=== PATIENT | female | born 1975 | race Caucasian/White ===

== ENCOUNTER 2016-10-28 10:40 | Observation (INO) ==
--- NOTE | 2016-10-28 11:09 | Emergency Department Note ---
Disposition Clinical Impression: Suicidal ideation Depression Qualifiers: Depression Type: unspecified Qualified Code(s): F32.9 - Major depressive disorder, single episode, unspecified Disposition: Admitted As Inpatient Condition: Fair Referrals: NONE,PCP [Primary Care Provider] - Forms: ED Satisfaction Letter Time of Disposition: 15:17 Psych HPI - General Chief Complaint: ED Psychiatric Symptoms Stated Complaint: SI Time Seen by Provider: 10/28/16 11:02 Source: patient Mode of arrival: ambulatory Limitations: no limitations Nursing Notes Reviewed: Yes Vital Signs Reviewed: Yes - History of Present Illness HPI Narrative: 41-year-old who comes in complaining of depression with suicidal ideation. Patient states she has a history depression has not taken her medication since beginning of the year. Pt complaint: suicidal ideation, feels depressed If medical clearance, reason: psychiatric condition Onset (ago): day(s) Duration: constant History of similar episodes: Yes Improves with: none Worsens with: none Alleged intoxication: No Associated Psychiatric Symptoms: depression Associated symptoms: Reports: denies other symptoms Treatments prior to arrival: none - Related Data Previous Rx's Medication Instructions Recorded Gabapentin [Neurontin] 100 mg PO TID 30 Days 12/27/14 FLUoxetine HCl [Prozac] 20 mg PO DAILY 30 Days 07/10/15 Allergies Allergy/AdvReac Type Severity Reaction Status Date / Time Penicillins Allergy Difficulty Verified 07/09/15 13:15 Breathing promethazine [From Phenergan] Allergy Nausea Verified 07/09/15 13:15 Constitutional: Denies: fever, chills, weakness, weight change Eyes: Denies: eye pain, eye discharge, vision change ENT ED: Denies: ear pain, throat pain, dental pain, hearing loss, epistaxis, congestion, dysphagia Cardiovascular: Denies: chest pain, palpitations, dyspnea on exertion, edema, syncope Respiratory: Denies: cough, dyspnea, wheezes, hemoptysis, stridor Gastrointestinal: Denies: abdominal pain, nausea, vomiting, diarrhea, constipation, hematemesis, melena, hematochezia Genitourinary: Denies: dysuria, frequency, hematuria, discharge Musculoskeletal: Denies: back pain, neck pain, arthralgia, myalgia Integumentary: Denies: rash, abrasion, lesions Neurological: Denies: headache, weakness, numbness, paresthesias, confusion, abnormal gait, vertigo Psychiatric: Reports: depression, suicidal thoughts. Denies: anxiety, homicidal thoughts, auditory hallucinations, visual hallucinations Endocrine: Denies: fatigue Hematological/Lymphatic: Denies: easy bleeding, easy bruising Allergic/Immunologic: Denies: facial swelling, urticaria Past Medical History - Past Medical History Medical history: Reports: no medical history Surgical history: Reports: other Psychiatric history: Reports: previous psychiatric hospitalization - Social History Smoking Status: Current every day smoker Smokeless Tobacco Status: No Alcohol use: Reports: occasionally, recent Drug use: Reports: methamphetamine Physical Exam - General Limitations: no limitations General appearance: alert, in no apparent distress - Head Head exam: atraumatic, normocephalic, normal inspection - Eye Eye exam: Present: normal appearance, PERRL, EOMI - ENT ENT exam: normal exam, normal oropharynx, mucous membranes moist - Neck Neck exam: Present: normal inspection, full ROM, trachea midline - Chest Chest inspection: Present: normal inspection, symmetric chest wall rise - Respiratory Respiratory exam: Present: normal lung sounds bilaterally - Cardiovascular Cardiovascular exam: Present: regular rate, normal rhythm, normal heart sounds - Abdominal Exam Abdominal exam: Present: soft, Non-Tender. Absent: tenderness, distention, guarding, rebound, rigidity - Extremities Exam Extremities exam: Present: normal inspection, full ROM. Absent: tenderness, pedal edema - Expanded Lower Extremity Exam Neurovascular/Tendon exam: Absent: motor deficit, sensory deficit, tendon deficit Gait: observed and normal - Back Exam Back exam: Present: normal inspection, full ROM. Absent: tenderness - Neurological Exam Neurological exam: Present: alert, oriented X3 - Psychiatric Psychiatric exam: Present: depressed, suicidal ideation - Skin Skin exam: Present: warm, dry, intact, normal color Course - Reevaluation(s) Reevaluation #1: 41-year-old with history depression and complaining of suicidal ideation. Patient was found to be a risk to herself. Patient will be admitted. Time: 15:16 - Consultations Consultation #1: Discussed with psychiatry who will admit the patient. Time: 15:16 Vital Signs Temperature 98.3 F 10/28/16 10:51 Pulse Rate 106 10/28/16 10:51 Respiratory Rate 16 10/28/16 10:51 Blood Pressure 122/85 10/28/16 10:51 O2 Sat by Pulse Oximetry 97 10/28/16 10:51 Temperature 98.3 F 10/28/16 10:51 Pulse Rate 106 10/28/16 10:51 Respiratory Rate 16 10/28/16 10:51 Blood Pressure 122/85 10/28/16 10:51 O2 Sat by Pulse Oximetry 97 10/28/16 10:51 Oxygen Delivery Oxygen Delivery Room Air Psych - Lab Data Lab results reviewed: Yes I reviewed the patient's lab results. Result diagrams: 10/28/16 11:14 10/28/16 11:14 Lab Results 10/28/16 10/28/16 10/28/16 Range/Units 11:14 11:14 11:14 WBC 4.3 (4.3-11.1) K/mcL RBC 4.62 (3.82-4.97) M/mcL Hgb 9.6 L (11.5-15.4) g/dL Hct 31.7 L (35.3-44.9) % MCV 68.6 L (83.0-100.0) fL MCH 20.8 L (28.0-33.3) pg MCHC 30.3 L (31.6-35.5) g/dL RDW 21.8 H (11.5-14.5) % Plt Count 522 H (140-400) K/mcL MPV 9.0 L (9.4-12.4) fL Immature Gran % 0.0 (0-4) % Seg Neutrophils % 41.4 % Lymphocytes % 43.6 % Monocytes % 11.0 % Eosinophils % 3.3 % Basophils % 0.7 % Neutrophils # 1.8 (1.6-8.9) K/mcL Lymphocytes # 1.9 (0.6-4.6) K/mcL Monocytes # 0.5 (0.0-1.3) K/mcL Eosinophils # 0.1 (0.0-0.6) K/mcL Basophils # 0.0 (0.0-0.2) K/mcL Platelet Estimate Increased H (Normal) Immature Plt Fraction 2.4 (1.1-6.1) % Polychromasia 1+ A (Not Present) Hypochromasia Present A (Not Present) Anisocytosis 1+ A (Not Present) Microcytosis Present A (Not Present) Sodium 140 (136-145) mEq/L Potassium 3.7 (3.5-4.5) mEq/L Chloride 109 (98-109) mEq/L Carbon Dioxide 23 (19-29) mEq/L BUN 9 (7-20) mg/dL Creatinine 0.65 (0.57-1.11) mg/dL Est GFR ( Amer) > 60 (> 60) Est GFR (Non-Af Amer) > 60 (> 60) BUN/Creatinine Ratio 14 (6-26) Glucose 105 H (70-99) mg/dL Calculated Osmolality 289 (280-300) Calcium 9.2 (8.6-10.8) mg/dL Serum , Qual Negative (Negative) Urine Color (Yellow) Urine Clarity (Clear) Urine pH (5.0-8.0) pH Units Ur Specific [place] (1.010-1.025) Urine Protein (Neg-Trace) mg/dL Urine Glucose (UA) (Normal) mg/dL Urine Ketones (Negative) mg/dL Urine Blood (Negative) Urine Nitrite (Negative) Urine Bilirubin (Negative) Urine Urobilinogen (Normal) mg/dL Ur Leukocyte Esterase (Negative) Urine Microscopic RBC (0-3) per hpf Urine Microscopic WBC (0-3) per hpf Ur Squamous Epith Cells (None-Few) per lpf Urine Bacteria (None-Few) per hpf Hyaline Casts (None-Few) per lpf Salicylates < 5.0 L (15-30) mg/dL Urine Opiates Screen (Bbnbmn=677) ng/mL Acetaminophen < 1.0 L (10-30) mcg/mL Ur Barbiturates Screen (Hmctat=264) ng/mL Ur Phencyclidine Scrn (Cutoff=25) ng/mL Ur Amphetamines Screen (Fuawvh=6382) ng/mL U Benzodiazepines Scrn (Yhdcqv=524) ng/mL Urine Cocaine Screen (Cutoff= 300) ng/mL U Marijuana (THC) Screen (Cutoff = 50) ng/mL Ethyl Alcohol < 10 (0-10) mg/dL 10/28/16 10/28/16 Range/Units 12:06 12:06 WBC (4.3-11.1) K/mcL RBC (3.82-4.97) M/mcL Hgb (11.5-15.4) g/dL Hct (35.3-44.9) % MCV (83.0-100.0) fL MCH (28.0-33.3) pg MCHC (31.6-35.5) g/dL RDW (11.5-14.5) % Plt Count (140-400) K/mcL MPV (9.4-12.4) fL Immature Gran % (0-4) % Seg Neutrophils % % Lymphocytes % % Monocytes % % Eosinophils % % Basophils % % Neutrophils # (1.6-8.9) K/mcL Lymphocytes # (0.6-4.6) K/mcL Monocytes # (0.0-1.3) K/mcL Eosinophils # (0.0-0.6) K/mcL Basophils # (0.0-0.2) K/mcL Platelet Estimate (Normal) Immature Plt Fraction (1.1-6.1) % Polychromasia (Not Present) Hypochromasia (Not Present) Anisocytosis (Not Present) Microcytosis (Not Present) Sodium (136-145) mEq/L Potassium (3.5-4.5) mEq/L Chloride (98-109) mEq/L Carbon Dioxide (19-29) mEq/L BUN (7-20) mg/dL Creatinine (0.57-1.11) mg/dL Est GFR ( Amer) (> 60) Est GFR (Non-Af Amer) (> 60) BUN/Creatinine Ratio (6-26) Glucose (70-99) mg/dL Calculated Osmolality (280-300) Calcium (8.6-10.8) mg/dL Serum , Qual (Negative) Urine Color Yellow (Yellow) Urine Clarity Clear (Clear) Urine pH 6.0 (5.0-8.0) pH Units Ur Specific [place] 1.029 H (1.010-1.025) Urine Protein 30 H (Neg-Trace) mg/dL Urine Glucose (UA) Normal (Normal) mg/dL Urine Ketones Negative (Negative) mg/dL Urine Blood Negative (Negative) Urine Nitrite Negative (Negative) Urine Bilirubin Negative (Negative) Urine Urobilinogen Normal (Normal) mg/dL Ur Leukocyte Esterase Negative (Negative) Urine Microscopic RBC 0-3 (0-3) per hpf Urine Microscopic WBC 3-5 H (0-3) per hpf Ur Squamous Epith Cells Many H (None-Few) per lpf Urine Bacteria None Seen (None-Few) per hpf Hyaline Casts None Seen (None-Few) per lpf Salicylates (15-30) mg/dL Urine Opiates Screen Negative (Xonska=682) ng/mL Acetaminophen (10-30) mcg/mL Ur Barbiturates Screen Negative (Zygnsm=662) ng/mL Ur Phencyclidine Scrn Negative (Cutoff=25) ng/mL Ur Amphetamines Screen Positive H (Jfdsbt=3083) ng/mL U Benzodiazepines Scrn Negative (Kvbjua=053) ng/mL Urine Cocaine Screen Negative (Cutoff= 300) ng/mL U Marijuana (THC) Screen Negative (Cutoff = 50) ng/mL Ethyl Alcohol (0-10) mg/dL Psychiatric Medical Clearance - Medical Clearance Checklist Does the patient have a NEW psychiatric condition?: No Any abnormalities indicating possible medical illness?: No Any history of medical issues?: No Medical History: No Social History Section defined Any abnormal vital signs prior to transfer?: No Current Vitals: Last Vital Signs Temp 98.3 F 10/28/16 10:51 Pulse 106 10/28/16 10:51 Resp 16 10/28/16 10:51 BP 122/85 10/28/16 10:51 Pulse Ox 97 10/28/16 10:51 Is the patient intoxicated or cognitively impaired?: No Psychiatric Lab Panel: Drug Levels and Toxicity 10/28/16 10/28/16 11:14 12:06 Urine Opiates Screen Negative Acetaminophen < 1.0 L Ur Barbiturates Screen Negative Ur Phencyclidine Scrn Negative Ur Amphetamines Screen Positive H U Benzodiazepines Scrn Negative Urine Cocaine Screen Negative U Marijuana (THC) Screen Negative Ethyl Alcohol < 10 Any abnormalities on the physical exam?: No Any abnormal labs?: Yes (Anemia) Abnormal Labs: Abnormal lab results Hgb 9.6 g/dL (11.5-15.4) L 10/28/16 11:14 Hct 31.7 % (35.3-44.9) L 10/28/16 11:14 MCV 68.6 fL (83.0-100.0) L 10/28/16 11:14 MCH 20.8 pg (28.0-33.3) L 10/28/16 11:14 MCHC 30.3 g/dL (31.6-35.5) L 10/28/16 11:14 RDW 21.8 % (11.5-14.5) H 10/28/16 11:14 Plt Count 522 K/mcL (140-400) H 10/28/16 11:14 MPV 9.0 fL (9.4-12.4) L 10/28/16 11:14 Platelet Estimate Increased (Normal) H 10/28/16 11:14 Polychromasia 1+ (Not Present) A 10/28/16 11:14 Hypochromasia Present (Not Present) A 10/28/16 11:14 Anisocytosis 1+ (Not Present) A 10/28/16 11:14 Microcytosis Present (Not Present) A 10/28/16 11:14 Glucose 105 mg/dL (70-99) H 10/28/16 11:14 Ur Specific [place] 1.029 (1.010-1.025) H 10/28/16 12:06 Urine Protein 30 mg/dL (Neg-Trace) H 10/28/16 12:06 Urine Microscopic WBC 3-5 per hpf (0-3) H 10/28/16 12:06 Ur Squamous Epith Cells Many per lpf (None-Few) H 10/28/16 12:06 Salicylates < 5.0 mg/dL (15-30) L 10/28/16 11:14 Acetaminophen < 1.0 mcg/mL (10-30) L 10/28/16 11:14 Ur Amphetamines Screen Positive ng/mL (Kgsvvs=6534) H 10/28/16 12:06 Does the patient require durable medical equiptment?: No Is the patient ambulatory?: Yes Is the patient a fall risk?: No Has the patient been medically cleared?: Yes Statement of Medical Clearance: I have evaluated the patient, reviewed diagnostic information, and certify that the patient's medical condition is sufficiently stable that transfer to the psychiatric unit does not pose a significant risk of deterioration.
[2016-10-28 11:40] LABS: Basophils % 0.7 %; Eosinophils # 0.1 K/mcL (0.0-0.6); Eosinophils % 3.3 %; Hematocrit 31.7 % (35.3-44.9); Hemoglobin 9.6 g/dL (11.5-15.4); Immature Platelets 2.4 % (1.1-6.1); Lymphocytes # 1.9 K/mcL (0.6-4.6); Lymphocytes % 43.6 %; Mean Corpuscular HGB Conc 30.3 g/dL (31.6-35.5); Mean Corpuscular Hemoglobin 20.8 pg (28.0-33.3); Mean Corpuscular Volume 68.6 fL (83.0-100.0); Monocytes # 0.5 K/mcL (0.0-1.3); Neutrophils # 1.8 K/mcL (1.6-8.9); Platelet Count 522 K/mcL (140-400); Red Blood Count 4.62 M/mcL (3.82-4.97); Red Cell Distribution Width 21.8 % (11.5-14.5); Segmented Neutrophils % 41.4 %
[2016-10-28 12:01] LABS: BUN/Creatinine Ratio 14 (6-26); Blood Urea Nitrogen 9 mg/dL (7-20); Calcium 9.2 mg/dL (8.6-10.8); Carbon Dioxide 23 mEq/L (19-29); Chloride 109 mEq/L (98-109); Glucose 105 mg/dL (70-99); Osmolality,Calculated 289 (280-300); Potassium 3.7 mEq/L (3.5-4.5); Sodium 140 mEq/L (136-145); eGFR For African Americans > 60 (> 60); eGFR For Non-African Americans > 60 (> 60)
[2016-10-28 12:03] LABS: Acetaminophen < 1.0 mcg/mL (10-30); Ethanol < 10 mg/dL (0-10); Salicylate < 5.0 mg/dL (15-30)
[2016-10-28 12:12] LABS: Anisocytosis 1+ (Not Present)
[2016-10-28 12:13] LABS: Hypochromasia Present (Not Present); Microcytosis Present (Not Present); Platelet Estimate Increased (Normal); Polychromasia 1+ (Not Present)
[2016-10-28 12:33] LABS: Bilirubin,Urine Negative (Negative); Blood,Urine Negative (Negative); Clarity,Urine Clear (Clear); Color,Urine Yellow (Yellow); Glucose,Urine (UA) Normal (Normal); Ketones,Urine Negative (Negative); Leukocyte Esterase,Urine Negative (Negative); Nitrite,Urine Negative (Negative); Protein,Urine 30 mg/dL (Neg-Trace); Specific Gravity,Urine 1.029 (1.010-1.025); Urobilinogen,Urine Normal (Normal)
[2016-10-28 12:35] LABS: Bacteria,Urine None Seen per hpf (None-Few); Hyaline Casts,Urine None Seen per lpf (None-Few); RBC,Urine 0-3 per hpf (0-3); Squamous Epithelial Cell,Urine Many per lpf (None-Few)
[2016-10-28 12:37] LABS: Amphetamine Screen,Urine Positive ng/mL (Cutoff=1000); Barbiturate Screen,Urine Negative ng/mL (Cutoff=200); Benzodiazepines Screen,Urine Negative ng/mL (Cutoff=200); Cannabinoid Screen,Urine Negative ng/mL (Cutoff = 50); Cocaine Screen,Urine Negative ng/mL (Cutoff= 300); Opiate Screen,Urine Negative ng/mL (Cutoff=300); Phencyclidine Screen,Urine Negative ng/mL (Cutoff=25)
[2016-10-28] MEDS ORDERED: Nicotine 2 MG GUM BC PRN (15:59)
[2016-10-28] MEDS ORDERED: Haloperidol Lactate 5 MG/ML VIAL IM PRN (15:59)
[2016-10-28] MEDS ORDERED: *HR* LORazepam 2 MG/ML VIAL IM PRN (15:59)
[2016-10-28] MEDS ORDERED: Ibuprofen 400 MG TABLET PO PRN (15:59)
[2016-10-28] MEDS ORDERED: *HR* LORazepam 1 MG TABLET PO PRN (15:59)
[2016-10-28] MEDS ORDERED: Mag Hydrox/Al Hydrox/Simeth 30 ML UDC PO PRN (15:59)
[2016-10-28] MEDS: hydrOXYzine pamoate 25 MG CAPSULE PO PRN (20:22)
[2016-10-28] MEDS: traZODone 50 MG TABLET PO PRN (20:22)
[2016-10-28] MEDS ORDERED: MOM Conc 10 ML UD.LIQ PO PRN (21:00)
--- NOTE | 2016-10-29 11:19 | Discharge Summary ---
Date of Encounter: 10/31/16 Time of Encounter: 11:00 History of Present Illness Chief complaint: Suicidal Admitted From: Emergency Dept History of Present Illness: Ms. Felder is a 41 year old female admitted from the emergency room for depression and suicidal ideation and self-mutilation by cutting herself on her arms also she has been using methamphetamine and noncompliant with her medication follow-up. She complained of family problems and relationship issues with her significant other and frustrated" with stopped taking her medication and "not follow-up of patient because of insurance. Patient had previous hospitalization most recent was last year in July 2015. Doxepin was positive for amphetamine. Past Med Surg Social Fam HX - Past Medical History Medical history: no medical history - Past Psychiatric History Psychiatric history: Reports: depression, prior suicide attempt, previous psychiatric hospitalization, other (Methamphetamine dependence) Past psychiatric history details: Last hospitalization July 2015 with similar presentation - Past Surgical History Surgical History: no surgical history, other - Social History Smoking Status: Current every day smoker Smokeless Tobacco Status: No Alcohol use: occasionally, recent Drug use: methamphetamine - Family History Mother Adopted: [place]: Sydnie Age: 59 Family Member Ethnicity: Non- Living Status: Still Living Hx Family Cancer: Yes Medications - Discharge Medications Prescriptions: Divalproex (24 HR) [Depakote ER (24 HR)] 250 mg PO HS #30 Divalproex (24 HR) [Depakote ER (24 HR)] 250 mg PO HS #30 10/30/16 [Rx] 3 Allergy/AdvReac Type Severity Reaction Status Date / Time Penicillins Allergy Difficulty Verified 10/29/16 08:14 Breathing promethazine [From Phenergan] Allergy Nausea Verified 10/29/16 08:14 Review of Systems Psychiatric: Reports: depression, suicidal ideation, hopelessness, irritability , mood swings Mental Status Exam - Mental Status Exam Patient orientation: Yes Person, Yes Time, Yes Place Level of alertness: Alert Patient appearance: Appropriate, Unkempt, Thin Behavior: calm, cooperative, agitated Psychomotor activity: Normal Eye contact: Minimal Contact Mood description: Labile, Irritable Affect description: congruent with mood, constricted, dysphoric Speech pattern: Normal rate, Normal rhythm, Normal tone, Limited Speech Volume: Normal Thought process: Linear, Goal Oriented, Thought Blocking Thought Content: No Suicidal ideation, No Homicidal ideation, No Overt delusions Perceptual Disturbances: No Auditory hallucinations, No Visual hallucinations Judgment: Limited Insight: Partial Results - Vital Signs Vital signs: Temp Pulse Resp BP Pulse Ox 98.3 F 78 14 97/53 97 10/29/16 09:00 10/29/16 09:00 10/29/16 09:00 10/29/16 09:00 10/28/16 10:51 - Labs Labs: Laboratory Last Values WBC 4.3 K/mcL (4.3-11.1) 10/28/16 11:14 RBC 4.62 M/mcL (3.82-4.97) 10/28/16 11:14 Hgb 9.6 g/dL (11.5-15.4) L 10/28/16 11:14 Hct 31.7 % (35.3-44.9) L 10/28/16 11:14 MCV 68.6 fL (83.0-100.0) L 10/28/16 11:14 MCH 20.8 pg (28.0-33.3) L 10/28/16 11:14 MCHC 30.3 g/dL (31.6-35.5) L 10/28/16 11:14 RDW 21.8 % (11.5-14.5) H 10/28/16 11:14 Plt Count 522 K/mcL (140-400) H 10/28/16 11:14 MPV 9.0 fL (9.4-12.4) L 10/28/16 11:14 Immature Gran % 0.0 % (0-4) 10/28/16 11:14 Seg Neutrophils % 41.4 % 10/28/16 11:14 Lymphocytes % 43.6 % 10/28/16 11:14 Monocytes % 11.0 % 10/28/16 11:14 Eosinophils % 3.3 % 10/28/16 11:14 Basophils % 0.7 % 10/28/16 11:14 Neutrophils # 1.8 K/mcL (1.6-8.9) 10/28/16 11:14 Lymphocytes # 1.9 K/mcL (0.6-4.6) 10/28/16 11:14 Monocytes # 0.5 K/mcL (0.0-1.3) 10/28/16 11:14 Eosinophils # 0.1 K/mcL (0.0-0.6) 10/28/16 11:14 Basophils # 0.0 K/mcL (0.0-0.2) 10/28/16 11:14 Platelet Estimate Increased (Normal) H 10/28/16 11:14 Immature Plt Fraction 2.4 % (1.1-6.1) 10/28/16 11:14 Polychromasia 1+ (Not Present) A 10/28/16 11:14 Hypochromasia Present (Not Present) A 10/28/16 11:14 Anisocytosis 1+ (Not Present) A 10/28/16 11:14 Microcytosis Present (Not Present) A 10/28/16 11:14 Sodium 140 mEq/L (136-145) 10/28/16 11:14 Potassium 3.7 mEq/L (3.5-4.5) 10/28/16 11:14 Chloride 109 mEq/L (98-109) 10/28/16 11:14 Carbon Dioxide 23 mEq/L (19-29) 10/28/16 11:14 BUN 9 mg/dL (7-20) 10/28/16 11:14 Creatinine 0.65 mg/dL (0.57-1.11) 10/28/16 11:14 Est GFR ( Amer) > 60 (> 60) 10/28/16 11:14 Est GFR (Non-Af Amer) > 60 (> 60) 10/28/16 11:14 BUN/Creatinine Ratio 14 (6-26) 10/28/16 11:14 Glucose 105 mg/dL (70-99) H 10/28/16 11:14 Calculated Osmolality 289 (280-300) 10/28/16 11:14 Calcium 9.2 mg/dL (8.6-10.8) 10/28/16 11:14 Serum , Qual Negative (Negative) 10/28/16 11:14 Urine Color Yellow (Yellow) 10/28/16 12:06 Urine Clarity Clear (Clear) 10/28/16 12:06 Urine pH 6.0 pH Units (5.0-8.0) 10/28/16 12:06 Ur Specific [place] 1.029 (1.010-1.025) H 10/28/16 12:06 Urine Protein 30 mg/dL (Neg-Trace) H 10/28/16 12:06 Urine Glucose (UA) Normal mg/dL (Normal) 10/28/16 12:06 Urine Ketones Negative mg/dL (Negative) 10/28/16 12:06 Urine Blood Negative (Negative) 10/28/16 12:06 Urine Nitrite Negative (Negative) 10/28/16 12:06 Urine Bilirubin Negative (Negative) 10/28/16 12:06 Urine Urobilinogen Normal mg/dL (Normal) 10/28/16 12:06 Ur Leukocyte Esterase Negative (Negative) 10/28/16 12:06 Urine Microscopic RBC 0-3 per hpf (0-3) 10/28/16 12:06 Urine Microscopic WBC 3-5 per hpf (0-3) H 10/28/16 12:06 Ur Squamous Epith Cells Many per lpf (None-Few) H 10/28/16 12:06 Urine Bacteria None Seen per hpf (None-Few) 10/28/16 12:06 Hyaline Casts None Seen per lpf (None-Few) 10/28/16 12:06 Salicylates < 5.0 mg/dL (15-30) L 10/28/16 11:14 Urine Opiates Screen Negative ng/mL (Qskzre=373) 10/28/16 12:06 Acetaminophen < 1.0 mcg/mL (10-30) L 10/28/16 11:14 Ur Barbiturates Screen Negative ng/mL (Aixqrg=407) 10/28/16 12:06 Ur Phencyclidine Scrn Negative ng/mL (Cutoff=25) 10/28/16 12:06 Ur Amphetamines Screen Positive ng/mL (Vzyodz=3887) H 10/28/16 12:06 U Benzodiazepines Scrn Negative ng/mL (Gyjzpp=348) 10/28/16 12:06 Urine Cocaine Screen Negative ng/mL (Cutoff= 300) 10/28/16 12:06 U Marijuana (THC) Screen Negative ng/mL (Cutoff = 50) 10/28/16 12:06 Ethyl Alcohol < 10 mg/dL (0-10) 10/28/16 11:14 Diagnosis - Discharge Diagnosis (1) Methamphetamine dependence Priority: Secondary Status: Chronic (2) Depression Status: Acute Qualifiers: Depression Type: unspecified Qualified Code(s): F33.2 - Major depressive disorder, recurrent severe without psychotic features Assessment and Plan - Patient/Caregiver Discharge Instructions Activity: resume usual activities as tolerated Diet: regular diet - Follow up Plan Follow up with: Primo Beltran [facility] [Outside] - 11/29/16 10:00 am (The above appointment is with Aparna for mental health counseling. You will also see Lucinda Acharya for outpatient psychiatric assessment and medication management services on at in the same office on 11/22/2016 at 10:00am. Please arrive 15 minutes early to complete paperwork. Please bring your insurance card , photo ID and medications in their original bottles. If you do not have insurance, bring proof of income to apply for the sliding fee scale. If you are unable to keep this appointment, 24 hour business notice of cancellation is expected. This is the first available appointment. You may contact the office regularly to check for cancellations that may allow you to be seen sooner. ) Functional capacity at discharge: independent ambulation Overall status at discharge: Stable Disposition: Home, Self-Care Provider Date of admission: 10/28/16 15:28 Primary care physician: PCP NONE Discharging clinician: [facility] Hospital Course Hospital course: Ms. Felder is a 41 year old female admitted for depression and suicidal ideation and methamphetamine abuse. For details of admission please see history of present illness. On the units patient was seclusive to her room at all times, she did not participate in groups or activity, she was irritable on contact. She was started on Depakote and was compliant with medication and denied any side effects. She was offered the opportunity to sign in voluntarily to continue her treatment after 72 hour hold, she declined and asked to be discharged. playground worker was able to schedule outpatient appointments and completed discharge plan. She was advised on medication compliance and substance abuse issues. On discharge patient was medically stable, denied any suicidal ideation and agreeable to discharge plans and follow-up. - Time Spent with Patient Total time spent providing and/or coordinating discharge services: Less than 30 minutes Procedures - Procedures Procedures: Medication Management, Crisis Stabilization, Supportive Therapy, Group Therapy, Psychoeducational Therapy Quality - Multiple Antipsychotics Patient discharged on 2 or more antipsychotic medications: No
[2016-10-29] MEDS: traZODone 50 MG TABLET PO PRN (20:26)
[2016-10-29] MEDS: hydrOXYzine pamoate 25 MG CAPSULE PO PRN (20:26)
[2016-10-29] MEDS ORDERED: Divalproex (24 HR) 250 MG TABLET PO SCH (21:00)
[2016-10-30 13:43] VITALS: BP 122/68
== END 2016-10-30 13:40 | disposition home or self-care (01) ==
LOC: EMEROO 10:40 → 1ANU 15:28 → INTOOBSV 15:28 → 1ANU 15:39
PROVIDERS: ADMIT Psychiatry & Neurology Psychiatry; ATTEND Psychiatry & Neurology Psychiatry